=== PATIENT | female | born 1980 | race Caucasian/White ===

== ENCOUNTER 2017-11-28 18:39 | Emergency (ER) | payer OTHER, MEDICAID, SELFPAY ==
[2017-11-28 18:40] VITALS: BMI 25.7
--- NOTE | 2017-11-28 18:52 | ED_ITS ---
HPI - Abdominal Pain General Chief Complaint: Abdominal Pain Stated Complaint: RIGHT SIDE CRAMPS/HEADACHE Time Seen by Provider: 11/28/17 18:51 Source: patient Mode of arrival: ambulatory Limitations: no limitations History of Present Illness HPI narrative: 37-year-old female here for evaluation of right lower quadrant abdominal pain. Patient states that the symptoms have been going on for the past couple days. She did see provider out on 1 of the . She states that over the past 24 hr she is started to have nausea and vomiting no fevers but did have decreased appetite. No urinary symptoms. No change of bowel or bladder. She states that she has had ovarian cysts in the past and she states this feels somewhat like an ovarian cyst. Related Data Home Medications Medication Instructions Recorded Confirmed Ethinyl Estradiol/Norgestima 1 tab PO QDAY #0 tab 11/27/12 (ORTHO TRI-CYCLEN LO) Allergies Allergy/AdvReac Type Severity Reaction Status Date / Time hydrocodone Allergy Verified 11/28/17 18:40 Review of Systems Constitutional Denies fever(s) and Reports headache(s) ENT Ears, Nose, Mouth, and Throat: Reports headache(s) Cardiovascular Denies chest pain and Denies dyspnea Respiratory Denies dyspnea Gastrointestinal Gastrointestinal: Reports abdominal pain, Denies change in stool character, Reports nausea and Reports vomiting Genitourinary Denies urinary frequency, Denies difficulty voiding, Denies dysuria, Denies pelvic pain, Denies flank pain and Denies vaginal discharge Musculoskeletal Denies myalgias and Denies arthralgias Integumentary/Breasts Denies lesions and Denies rash Neurologic Reports headache(s) Hematologic/Lymphatic Denies easy bleeding and Denies easy bruising [facility] Medical History Migraines (Acute) Surgical History No pertinent past surgical history (Acute) Exam Initial Vital Signs Initial Vital Signs: Vital Signs Pulse Rate 67 11/28/17 19:21 Respiratory Rate 16 11/28/17 19:21 Blood Pressure 116/79 11/28/17 19:21 Pulse Oximetry 100 11/28/17 19:21 Const General: cooperative, healthy appearing, comfortable, well developed, well groomed and No acute distress Orientation: alert, awake and oriented x3 HENMT Head: normal to inspection and normocephalic Cardio Rate: regular rate Rhythm: regular rhythm Pulses: radial pulses present GI Inspection: non-distended Palpation: soft and No firm Skin Lesions: no lesions Rashes: no rashes Neuro General: alert, awake and oriented x3 Cognition: normal cognition Speech: speech normal Gait: normal gait Extrem General: normal to inspection and capillary refill normal Psych Appearance: grossly normal and well kempt Course Orders Ordered: ED Orders 11/28/17 19:04 US pelvic complete Stat 11/28/17 20:40 Complete Blood Count AUTO DIFF Stat Comprehensive Metabolic Panel Stat Lipase Stat Discontinued Medications Acetaminophen (Tylenol) 975 mg PO NOW ONE Stop: 11/28/17 21:13 Last Admin: 11/28/17 21:15 Dose: 975 mg Diphenhydramine HCl (Benadryl) 25 mg IV NOW ONE Stop: 11/28/17 19:03 Last Admin: 11/28/17 19:38 Dose: 25 mg Sodium Chloride (Normal Saline 0.9%) 1,000 mls @ 1,000 mls/hr IV BOLUS ONE Stop: 11/28/17 20:01 Last Infusion: 11/28/17 20:35 Dose: 0 mls/hr Admin: 11/28/17 19:38 Dose: 1,000 mls/hr Ketorolac Tromethamine (Toradol) 30 mg IV NOW ONE Stop: 11/28/17 21:13 Last Admin: 11/28/17 21:15 Dose: 30 mg Metoclopramide HCl (Reglan) 10 mg IV NOW ONE Stop: 11/28/17 19:03 Last Admin: 11/28/17 19:38 Dose: 10 mg Vital Signs - 8 hr 11/28/17 19:21 11/28/17 20:46 Pulse Rate 67 68 Respiratory Rate 16 16 Blood Pressure [Right Arm] 116/79 114/80 Pulse Oximetry 100 100 MDM - Abdominal Pain Lab Data Attestation: I reviewed the patient's lab results. Result diagrams: 11/28/17 20:40 11/28/17 20:40 Lab Results 11/28/17 11/28/17 Range/Units 20:40 20:40 WBC 6.8 (4.5-11.0) X10^3/uL RBC 3.94 L (4.0-5.2) X10^6/uL Hgb 12.7 (12.0-16.0) g/dL Hct 37.0 (36-46) % MCV 93.9 (80-100) fL MCH 32.1 (26-34) PG MCHC 34.2 (30-36) % RDW 13.4 (11.6-14.8) % Plt Count 273 (150-400) X10^3/uL Neut % (Auto) 68.2 (50-75) % Lymph % (Auto) 24.6 L (25-40) % [place] % (Auto) 6.3 (3-14) % Eos % (Auto) 0.3 L (2-4) % Baso % (Auto) 0.6 (0-2) % Neut # (Auto) 4600 (7755-5160) /uL Sodium 141 (137-145) mmol/L Potassium 4.1 (3.4-5.1) mmol/L Chloride 108 H (98-107) mmol/L Carbon Dioxide 23 (22-32) mmol/L BUN 14 (7-17) mg/dL Creatinine 0.60 (0.52-1.04) mg/dL Estimated GFR > 60.0 (>60) mL/min BUN/Creatinine Ratio 23.3 H (6-22) Glucose 75 (70-100) mg/dL Calcium 8.6 (8.4-10.2) mg/dL Total Bilirubin 0.3 (0.2-1.3) mg/dL AST 15 (14-36) IU/L ALT 22 (9-52) IU/L Alkaline Phosphatase 81 (38-126) U/L Total Protein 6.4 (6.3-8.2) g/dL Albumin 3.8 (3.5-5.0) g/dL Globulin 2.6 (1.7-4.1) g/dL Albumin/Globulin Ratio 1.5 (1.0-2.8) Lipase 52 (23-300) U/L Point of care testing: Point of Care Testing Test Results Negative Urine Dip Bedside Urine Glucose Negative Bedside Urine Bilirubin - Negative Bedside Urine Ketone ++ 40 Urine Specific [place] 1.015 Bedside Urine Occult Blood - Negative Bedside Urine pH 6.0 Bedside Urine Protein - Negative Bedside Urine Urobilinogen - Negative Bedside Urine Nitrite - Negative Bedside Urine Leukocytes - Negative Esterase Imaging Data US - abdomen: Radiologist's impression: PROCEDURE: US PELVIC COMPLETE INDICATIONS: RIGHT PELVIC PAIN TECHNIQUE: Real-time scanning was performed of the pelvic organs, with image documentation. Additional endovaginal scanning was necessary due to incomplete visualization of the adnexal and endometrial structures by transabdominal scanning. COMPARISON: None. FINDINGS: Transabdominal scanning: Limited scanning through the kidneys shows no hydronephrosis. No pathologic free abdominal or pelvic fluid. Endovaginal scanning: Uterus: Uterus is normal in size at 4.5 x 9.1 x 5.8 cm. The endometrium measures 10.3 mm in combined thickness. Ovaries: The right ovary measures 2.8 x 2.8 x 2.7 cm. There is a 2.3 x 1.6 x 2.4 cm complex, avascular cyst within the right ovary. The left ovary measures 2.8 x 1.9 x 1.9 cm and has a normal echotexture. IMPRESSION: 1. Complex avascular right ovarian cyst suggesting a hemorrhagic cyst or endometrioma. 6-12 weeks sonographic followup recommended to ensure stability or resolution. Dictated by: Keyanna Forrest M.D. on 11/28/2017 at 20:21 Approved by: Keyanna Forrest M.D. on 11/28/2017 at 20:24 [facility] Narrative Medical decision making narrative: 37-year-old female with ultrasound showing right sided complex ovarian cyst. I feel that this is the source of her pain since she states that she has had ovarian cysts in the past and this feels like an ovarian cyst. Given the fact she does not have a fever and this finding I feel that a CT scan for appendicitis is not necessary today. She also has a headache. Has a history of headaches. Was given pain medication here in the emergency department which did improve her symptoms. She was given return precautions. She expressed understanding and agreement with plan. Discharge Plan Departure Patient Disposition: Home Clinical Impression: Headache, Abdominal pain, Ovarian cyst Discharge Date/Time: 11/28/17 21:50 Interventions: ED Discharge Assessment Last Done: 11/28/17 21:48 Instructions: DI for Ovarian Cyst, DI for Abdominal Pain-Adult, DI for Headache Activity Restrictions/Additional Instructions: Recommend that you contact your primary doctor to discuss your options for control. I do recommend a follow-up for the right ovarian cyst that was seen today in the ER. Return to the emergency department for any new or worsening symptoms, fevers, worsening abdominal pain, inability to tolerate oral intake, or any other concerning symptoms Prescriptions: No Action Ethinyl Estradiol/Norgestima (ORTHO TRI-CYCLEN LO) 1 tab PO QDAY Qty: 0 RF: 0
--- NOTE | 2017-11-28 19:04 | DI.US.S_ITS ---
PROCEDURE: US PELVIC COMPLETE INDICATIONS: RIGHT PELVIC PAIN TECHNIQUE: Real-time scanning was performed of the pelvic organs, with image documentation. Additional endovaginal scanning was necessary due to incomplete visualization of the adnexal and endometrial structures by transabdominal scanning. COMPARISON: None. FINDINGS: Transabdominal scanning: Limited scanning through the kidneys shows no hydronephrosis. No pathologic free abdominal or pelvic fluid. Endovaginal scanning: Uterus: Uterus is normal in size at 4.5 x 9.1 x 5.8 cm. The endometrium measures 10.3 mm in combined thickness. Ovaries: The right ovary measures 2.8 x 2.8 x 2.7 cm. There is a 2.3 x 1.6 x 2.4 cm complex, avascular cyst within the right ovary. The left ovary measures 2.8 x 1.9 x 1.9 cm and has a normal echotexture. IMPRESSION: 1. Complex avascular right ovarian cyst suggesting a hemorrhagic cyst or endometrioma. 6-12 weeks sonographic followup recommended to ensure stability or resolution. Dictated by: Keyanna Forrest M.D. on 11/28/2017 at 20:21 Approved by: Keyanna Forrest M.D. on 11/28/2017 at 20:24
[2017-11-28 19:21] VITALS: BP 116/79; PULSE 67; RESP 16; O2SAT 100
[2017-11-28] MEDS: SODIUM CHLORIDE 0.9% 1,000 ML 1000 ML IV (19:38)
[2017-11-28] MEDS: diphenhydrAMINE 50 MG/ML VIAL 25 MG IV (19:38)
[2017-11-28] MEDS: METOCLOPRAMIDE 10 MG/2 ML INJ IV (19:38)
[2017-11-28 20:44] LABS: Add Manual Diff / Slide Review NO; Basophils Percent Auto 0.6 % (0-2); Eosinophils Percent Auto 0.3 % (2-4); Hemoglobin 12.7 g/dL (12.0-16.0); Lymphocytes Percent Auto 24.6 % (25-40); Mean Corpuscular HGB Conc 34.2 % (30-36); Mean Corpuscular Hemoglobin 32.1 PG (26-34); Mean Corpuscular Volume 93.9 fL (80-100); Monocytes Percent Auto 6.3 % (3-14); Neutrophils Absolute Auto 4600 /uL (3000-5900); Neutrophils Percent Auto 68.2 % (50-75); Platelet Count 273 X10^3/uL (150-400); Red Blood Cell Count 3.94 X10^6/uL (4.0-5.2); Red Cell Distribution Width 13.4 % (11.6-14.8); White Blood Cell Count 6.8 X10^3/uL (4.5-11.0)
[2017-11-28 20:46] VITALS: BP 114/80; PULSE 68; RESP 16; O2SAT 100
[2017-11-28 20:55] LABS: Alanine Aminotransferase 22 IU/L (9-52); Albumin 3.8 g/dL (3.5-5.0); Albumin Globulin Ratio 1.5 (1.0-2.8); Alkaline Phosphatase 81 U/L (38-126); Aspartate Aminotransferase 15 IU/L (14-36); BUN Creatinine Ratio 23.3 (6-22); Bilirubin Total 0.3 mg/dL (0.2-1.3); Blood Urea Nitrogen 14 mg/dL (7-17); Calcium 8.6 mg/dL (8.4-10.2); Carbon Dioxide 23 mmol/L (22-32); Chloride 108 mmol/L (98-107); Estimated Glomerular Filt Rate > 60.0 mL/min (>60); Globulin 2.6 g/dL (1.7-4.1); Glucose 75 mg/dL (70-100); HEMOLYSIS < 15 (0-50); Lipase 52 U/L (23-300); Potassium 4.1 mmol/L (3.4-5.1); Sodium 141 mmol/L (137-145); Total Protein 6.4 g/dL (6.3-8.2)
[2017-11-28] MEDS: ACETAMINOPHEN 325 MG TABLET 975 MG PO (21:15)
[2017-11-28] MEDS: KETOROLAC 60 MG/2 ML VIAL 30 MG IV (21:15)
== END 2017-11-28 21:50 | disposition home or self-care (01) ==
PROVIDERS: Emergency Provider Emergency Medicine; Family Provider Physician Assistant; PCP Physician Assistant
DX: R51 Headache (principal); R10.9 Unspecified abdominal pain; N83.209 Unspecified ovarian cyst, unspecified side
CPT/HCPCS: 36415; 76830; 76856; 80053; 81003; 81025; 83690; 85025; 96361; 96374; 96375; 99283; 99284; J1200; J1885; J2765

== ENCOUNTER → 2018-04-17 15:06 | Outpatient (CLI) | payer OTHER, MEDICAID, SELFPAY ==
--- NOTE | 2018-04-17 | DI.US.S_ITS ---
PROCEDURE: US OB <= 14 WEEKS FETUS INDICATIONS: SIZE AND DATES OUTSIDE/PRIOR DATING DATA: Last menstrual period (LMP): 02/10/18. LMP-based estimated date of delivery (KAROL): 11/17/18. First dating scan (date and location): This study, 04/17/18. Estimated date of delivery (KAROL) from first dating scan: 12/13/18, plus or -7 days. TECHNIQUE: Real-time scanning was performed of the fetus and maternal pelvic organs, with image documentation. Endovaginal scanning was also performed to better visualize the fetus and maternal ovaries. COMPARISON: None. FINDINGS: Embryo: An intrauterine gestation is not seen but what appears to be an intrauterine gestational sac is present the mean sac diameter 1 cm, which correlates with a gestational age estimated at 5 weeks 5 days, plus or -7 days. Measurement variability in dating: +/- 4 weeks by LMP, +/- 7 days by mean sac diameter (use before 6 weeks gestation if crown-rump length not able to be measured), +/- 5 days by crown-rump length (up to 8 weeks 6 days gestation), +/- 7 days by crown-rump length (up to 13 weeks 6 days gestation). Maternal organs: Ovaries normal considering gestational status. Limited images through the kidneys demonstrate no hydronephrosis. IMPRESSION: Mean sac diameter visualization appears present, but an intrauterine crown-rump length is not seen nor is a heart beat. Sonographic evidence of ectopic is not present, and the likelihood of ectopic is considered very low given the visualization of a yolk sac within the gestational sac, within the uterine fundus. A viable is presumed to be present, but at an early gestational age which is not yet allowing visualization of the cardiac activity and pole. Followup OB ultrasound in approximately 10 days may be warranted, versus clinical followup. anatomic survey at approximately 21 weeks gestation is recommended. A current estimated gestational age is 5 weeks 5 days and the delivery date would be projected from the study to be centered on 12/13/18, plus or -7 days. Dictated by: Ramy Cardenas M.D. on 04/17/2018 at 16:55 Approved by: Ramy Cardenas M.D. on 04/17/2018 at 16:58
== END ==
PROVIDERS: Family Provider Physician Assistant; PCP Physician Assistant; Visit Provider Family Medicine
DX: Z34.91 Encounter for supervision of normal pregnancy, unspecified, first trimester (principal); Z3A.01 Less than 8 weeks gestation of pregnancy
CPT/HCPCS: 76801

== ENCOUNTER → 2018-05-20 17:12 | Outpatient (CLI) | payer OTHER, MEDICAID, SELFPAY ==
[2018-05-20 17:55] LABS: Add Manual Diff / Slide Review NO; Basophils Absolute Auto 0 /uL (0-100); Basophils Percent Auto 0.3 % (0-2); Eosinophils Absolute Auto 100 /uL (0-450); Eosinophils Percent Auto 0.7 % (2-4); Hematocrit 38.4 % (36-46); Hemoglobin 13.1 g/dL (12.0-16.0); Lymphocytes Absolute Auto 2500 /uL (1100-4500); Lymphocytes Percent Auto 28.6 % (25-40); Mean Corpuscular HGB Conc 34.2 % (30-36); Mean Corpuscular Hemoglobin 32.1 PG (26-34); Mean Corpuscular Volume 93.8 fL (80-100); Monocytes Absolute Auto 600 /uL (0-900); Monocytes Percent Auto 6.7 % (3-14); Neutrophils Absolute Auto 5500 /uL (1500-7000); Neutrophils Percent Auto 63.7 % (50-75); Platelet Count 312 X10^3/uL (150-400); Red Blood Cell Count 4.09 X10^6/uL (4.0-5.2); Red Cell Distribution Width 12.8 % (11.6-14.8); White Blood Cell Count 8.7 X10^3/uL (4.5-11.0)
[2018-05-20 18:40] LABS: Hepatitis B Surface Antigen NEGATIVE s/c (NEGATIVE); Rubella Antibody IgG 20.6 IU/mL (>15)
[2018-05-20 18:56] LABS: HIV 1 and 2 Antibody NEGATIVE (NEGATIVE); Hep C Virus Ab w/Reflex Quant NEGATIVE s/c (NEGATIVE)
[2018-05-20 19:13] LABS: Appearance Urine UA CLEAR; Bilirubin Urine UA NEGATIVE (NEGATIVE); Color Urine UA YELLOW; Glucose Urine UA NEGATIVE (Negative); Ketones Urine UA NEGATIVE (NEGATIVE); Leukocyte Esterase Urine UA NEGATIVE (NEGATIVE); Nitrite Urine UA NEGATIVE (Negative); Occult Blood Urine UA NEGATIVE (Negative); Protein Urine UA NEGATIVE (Negative); Specific Gravity Urine UA 1.015 (1.000-1.035); Urobilinogen Urine UA 0.2 E.U./dL (0.2); pH Urine UA 7.5 (4.5-8.0)
[2018-05-21 01:05] LABS: Urine Chlamydia NOT DETECTED
[2018-05-21 01:06] LABS: Urine N gonorrhoeae NOT DETECTED
[2018-05-22 12:48] LABS: RPR Screen Nonreactive (Nonreactive)
== END ==
PROVIDERS: PCP Physician Assistant; Visit Provider Specialist
DX: Z34.81 Encounter for supervision of other normal pregnancy, first trimester (principal); Z3A.10 10 weeks gestation of pregnancy
CPT/HCPCS: 36415; 80055; 81003; 86703; 86787; 86803; 86850; 86900; 86901; 87077; 87086; 87491; 87591

== ENCOUNTER → 2018-06-22 11:08 | Outpatient (CLI) | payer OTHER, MEDICAID, SELFPAY ==
[2018-06-29 13:28] LABS: AFP, Serum 31.5 ng/mL; Calc Gestational Age 15.1; Cigarette Smoker N; Donated Egg NOT GIVEN; Donor Egg Age NOT GIVEN; Estriol, Free 0.65 ng/mL; Inhibin A, Dimeric 269 pg/mL; Maternal Ethnicity CAUCASIAN; Maternal Weight 162 lbs; Number of Fetuses NOT GIVEN; Previous Pregnancy Down Syndro NOT GIVEN; hCG, MoM 1.35
== END ==
PROVIDERS: PCP Physician Assistant; Visit Provider Specialist
DX: Z34.82 Encounter for supervision of other normal pregnancy, second trimester (principal); Z3A.15 15 weeks gestation of pregnancy
CPT/HCPCS: 36415; 82105; 82677; 84702; 86336

== ENCOUNTER → 2018-08-24 10:37 | Outpatient (CLI) | payer OTHER, MEDICAID, SELFPAY ==
--- NOTE | 2018-08-24 10:39 | DI.US.S_ITS ---
PROCEDURE: US OB >= 14 WEEKS FETUS INDICATIONS: ANATOMY SURVEY OUTSIDE/PRIOR DATING DATA: Last menstrual period (LMP): 02/10/18. LMP-based estimated date of delivery (KAROL): 11/17/18. First dating scan (date and location): 04/17/18. Estimated date of delivery (KAROL) from first dating scan: 12/13/18. TECHNIQUE: Real-time scanning was performed of the fetus, with image documentation and biometric measurements. Endovaginal scanning: Not needed for this study COMPARISON: [facility], , OB >= 14 WEEKS FETUS, 07/16/2018, 12:00. FINDINGS: General: A single living intrauterine gestation is present. Presentation: Vertex. Placenta: Placental position is anterior, without previa. Amniotic fluid index: 12.5 cm, normal range is 5-24 cm. heart rate: 145 beats per minute. Maternal cervical canal: 3.5 cm long. Normal lower limit is 2.5 cm. biometrics: Biparietal diameter: 5.8 cm, 23 weeks 4 days Head circumference: 22.1 cm, 24 weeks 1 day Abdominal circumference: 19.8 cm, 24 weeks 3 days Femur length: 4.2 cm, 23 weeks 4 days Estimated gestational age from initial scan: 24 weeks 1 day Composite gestational age from present scan: 23 weeks 6 days Estimated weight and percentile: 656 g, 37th percentile Measurement variability for biometric dating: +/- 7 days from 14 weeks to 15 weeks 6 days gestation, +/- 10 days from 16 weeks to 21 weeks 6 days gestation, +/- 2 weeks from 22 weeks to 27 weeks 6 days gestation, +/- 3 weeks for 28 weeks gestation or later. weight reference: 4500 g or EFW >90/95% is considered macrosomia or large for gestational age. EFW <10% is small for gestational age. EFW 5% or less is considered intra-uterine growth restriction. Anatomic survey: Neuro: Ventricles are non-dilated at less than 10 mm. Cisterna magna is normal at 3-11 mm. Cerebellum is normal in size and morphology. Nuchal skin fold: Normal at less than 6 mm between 14-21 weeks gestational age. Face: Nose and lips, facial profile are normal. Spine: No evidence for spina bifida. Heart: 4-chambered heart is present, with normal ventricular outflow tracts. Diaphragm: Diaphragm is intact. Stomach: Left-sided stomach is present. Kidneys: No hydronephrosis. Normal is less than 5 mm in 2nd trimester, less than 7 mm in 3rd trimester. Cord: 3-vessel cord has orthotopic insertion. Bladder: Normal in size. Extremities: All 4 extremities identified. IMPRESSION: Single living intrauterine gestation with appropriate interval growth and normal survey of anatomy. The delivery date is projected centered on 12/13/18, plus or -5 days, based on the first OB ultrasound. Dictated by: Ramy Cardenas M.D. on 08/24/2018 at 16:20 Approved by: Ramy Cardenas M.D. on 08/24/2018 at 16:22
[2018-08-24 13:59] LABS: Hematocrit 34.8 % (36-46); Hemoglobin 12.2 g/dL (12.0-16.0)
[2018-08-24 14:20] LABS: GTT (PREG) 1 Hour PP 50gm Dose 87 mg/dL (76-139)
== END ==
PROVIDERS: Family Provider Specialist; PCP Physician Assistant; Visit Provider Specialist
DX: Z34.82 Encounter for supervision of other normal pregnancy, second trimester (principal); Z3A.23 23 weeks gestation of pregnancy
CPT/HCPCS: 36415; 76811; 82950; 85014; 85018

== ENCOUNTER → 2018-11-19 13:55 | Outpatient (CLI) | payer OTHER, MEDICAID, SELFPAY ==
[2018-11-20 10:11] LABS: Strep Grp B PCR POS for Grp B Strep
== END ==
PROVIDERS: Family Provider Specialist; PCP Physician Assistant; Visit Provider Specialist
DX: Z34.83 Encounter for supervision of other normal pregnancy, third trimester (principal)
CPT/HCPCS: 87653

== ENCOUNTER 2018-11-30 09:23 | Inpatient (IN) | payer OTHER, MEDICAID, SELFPAY ==
--- NOTE | 2018-11-30 10:39 | PM.PREOP ---
Pre-operative Note Interval Note History & Physical reviewed/Exam performed by Physician: Yes Changes to H&P: No H&P completed within 30 days and has changed as indicated here:: Patient declined tubal ligation
[2018-11-30] MEDS: CEFAZOLIN 2 GM/100 ML FROZ.PIGGY IV (10:50)
[2018-11-30 10:55] LABS: Add Manual Diff / Slide Review NO; Basophils Absolute Auto 0 /uL (0-100); Basophils Percent Auto 0.3 % (0-2); Eosinophils Absolute Auto 100 /uL (0-450); Eosinophils Percent Auto 0.7 % (2-4); Hematocrit 37.4 % (36-46); Hemoglobin 13.1 g/dL (12.0-16.0); Lymphocytes Absolute Auto 1900 /uL (1100-4500); Lymphocytes Percent Auto 19.9 % (25-40); Mean Corpuscular HGB Conc 35.1 % (30-36); Mean Corpuscular Hemoglobin 32.5 PG (26-34); Mean Corpuscular Volume 92.5 fL (80-100); Monocytes Absolute Auto 600 /uL (0-900); Monocytes Percent Auto 5.9 % (3-14); Neutrophils Absolute Auto 6900 /uL (1500-7000); Neutrophils Percent Auto 73.2 % (50-75); Platelet Count 259 X10^3/uL (150-400); Red Blood Cell Count 4.04 X10^6/uL (4.0-5.2); Red Cell Distribution Width 13.3 % (11.6-14.8); White Blood Cell Count 9.5 X10^3/uL (4.5-11.0)
--- NOTE | 2018-11-30 11:17 | SUR.OPER ---
Supine on Padded OR bed, head on pillow, safety belt at thigh, arms secured on padded arm boards at <90 degrees abduction. Bump under right buttock. Legs uncrossed with pillow under knees, gel pad to heels, tape over blanket to lower legs.
--- NOTE | 2018-11-30 11:22 | SUR.OPER ---
preoperative LNN=[id number], live female at 1121.
[2018-11-30] MEDS: LACTATED RINGERS 1,000 ML 100 ML IV ×2 (11:28→13:48)
[2018-11-30 11:57] VITALS: BP 105/65; PULSE 75; RESP 16; TEMP 36.1; O2SAT 99
[2018-11-30 12:02] VITALS: BP 102/71; PULSE 78; RESP 14; O2SAT 100
--- NOTE | 2018-11-30 12:02 | SUR.OPER ---
see L&D note for apgars
[2018-11-30 12:07] VITALS: BP 107/73; PULSE 82; RESP 20; O2SAT 97
--- NOTE | 2018-11-30 12:08 | P.OP_ITS ---
Operative Date/Time/Diagnoses Date of procedure: 11/30/18 Time of procedure: 12:08 Pre-op diagnosis: Prior section x2 and breech presentation Post-op diagnosis: same Procedure & Clinicians Procedure: Repeat low-transverse section Same procedure as scheduled: Yes Surgeon: Mya Keane Turn Down Worker: James Bourgeois Click Yes if Unassisted: No Anesthesia Type: Spinal Operative Notes Findings: Normal tubes ovaries and uterus, viable female infant in breech presentation, clear amniotic fluid, Apgars were 6 and 7. Closure Type: primary Specimen(s): none sent Applied: catheter Estimated Blood Loss (mL): 350 Blood products transfused: none Procedure in detail: The patient was brought to the operating room where she underwent a spinal for anesthesia. She was placed in a supine position with a left lateral tilt. A Campos catheter was placed. Pulsatile stockings were placed and functional throughout the case. 2 g of Ancef were given IV prior to the incision. Warming was in place. The patient was prepped and draped in usual sterile fashion. A low transverse incision was made through the prior scar with a scalpel and the incision was carried down to the fascial layer which was incised transversely with scissors. The midline attachments are superiorly and inferiorly. Some bleeding was controlled Bovie. The rectus muscles were in the midline and the peritoneal incision was made with no damage to internal structures. The peritoneum was incised and superiorly and inferiorly. Bladder blade was placed and a bladder flap was developed and the bladder held away from the lower uterine segment. An incision was made in the uterus with the scalpel and the incision was extended with stretching. The breech was elevated out of the pelvis. With fundal pressure the infant was delivered to the shoulders and rotated to deliver each arm. With a finger in the mouth the head was delivered. The baby was delivered. The was bulb suctioned for clear fluid and handed off to the warmer. Cord blood was collected. The placenta delivered spontaneously with traction. The uterus was cleaned with clean laps. The uterine incision was closed in 2 layers of 0 chromic suture the first a running locking layer the second an imbricating layer. The bladder peritoneum was repaired with 2-0 Polysorb suture. The gutters were cleaned of any remaining fluids and ovaries and tubes were observed to be normal. Adequate hemostasis was noted. The perineum was closed with 2-0 Polysorb suture. The fascia layer was closed with 0 Polysorb suture with 2 stitches. The incision was irrigated and adequate hemostasis noted. The incision was closed with interrupted 3-0 Polysorb sutures and then a subcuticular stitch of 4-0 Polysorb suture. Steri-Strips were placed. The uterus was massaged to remove any clots. The patient went to recovery room in good condition. Counts of instruments and sponges were correct. Complications: none Post-operative Condition: stable Disposition: other ( Center) Plan for aftercare: Routine post section
[2018-11-30 12:12] VITALS: BP 104/73; PULSE 75; RESP 15; TEMP 36.1; O2SAT 98
--- NOTE | 2018-11-30 12:24 | SUR.PHASEI ---
Post op Phase I PACU note: Patient arrived to PACU at 1157 via inpatient bed. AA/O x 3 on arrival. Spinal level at T-4. Respirations regular and unlabored. VSS, O2 sat WNL on RA. FF @ U. Fozia pad with small amount of lochia rubra no clots. Denied any pain or discomfort. IV site patent. Handoff report received from Trini Abraham RN and Dr. Owen. VSS post arrival. Denies nausea. Stable for transfer to [facility]. Mohinder Portillo RN
[2018-11-30 12:27] VITALS: BP 106/69; PULSE 74; RESP 15; TEMP 36.1; O2SAT 98
[2018-11-30] MEDS: KETOROLAC 30 MG/ML VIAL IV ×2 (13:33→19:51)
[2018-11-30 13:45] LABS: Urine Amphetamines Negative (Negative); Urine Barbiturates Negative (Negative); Urine Benzodiazepines Negative (Negative); Urine Cocaine Negative (Negative); Urine MDMA Negative (Negative); Urine Methadone Negative (Negative); Urine Methamphetamines Negative (Negative); Urine Morphine/Opi cutoff 2000 Negative (Negative); Urine Oxycodone Negative (Negative); Urine Phencyclidine Negative (Negative); Urine Tetrahydrocannabinol Positive (Negative); Urine Tricyclic Antidepressant Negative (Negative)
[2018-11-30] MEDS: OXYCODONE IR 10 MG TABLET PO ×2 (18:09→22:06)
[2018-11-30 19:07] VITALS: BP 125/87
[2018-12-01] MEDS: KETOROLAC 30 MG/ML VIAL IV ×2 (02:01→07:49)
[2018-12-01] MEDS: OXYCODONE IR 10 MG TABLET PO ×3 (02:02→09:50)
[2018-12-01 05:51] LABS: Hematocrit 34.6 % (36-46); Hemoglobin 12.2 g/dL (12.0-16.0)
[2018-12-01] MEDS: DOCUSATE 250 MG CAPSULE PO (07:49)
--- NOTE | 2018-12-01 09:17 | P.DS_ITS ---
Discharge Providers Provider Date of admission: 11/30/18 09:23 Discharge Date: 12/01/18 Primary care physician: Josephine Gallegos PA-C Consults: 11/30/18 12:47 Consult to Robotics Application Engineer Routine Comment: Discharge provider: Mya Keane MD Summary Hospital Course Date Patient Seen: 12/01/18 Time Patient Seen: 09:17 Procedures: Repeat low-transverse section Hospital Course: Patient underwent a repeat low-transverse section with a breech baby. Female infant had to be transported due to pneumothorax. Patient feels she is ready to be discharged so she can go be with her baby. She is urinating post removal of her Campos catheter. She is ambulatory. She did pass a little gas. Peripartum Data Infant Delivery Method: Section (Repeat and breech presentation) Procedures: Repeat low-transverse section complications: none 1: Disposition of : NICU (General acute hospital for pneumothorax) Time Spent with Patient Time attestation: Total time spent providing and/or coordinating discharge services: Objective Labs Result Diagrams: 12/01/18 05:10 Labs: Laboratory Results - last 24 hr 11/30/18 11/30/18 11/30/18 10:40 10:40 13:34 WBC 9.5 RBC 4.04 Hgb 13.1 Hct 37.4 MCV 92.5 MCH 32.5 MCHC 35.1 RDW 13.3 Plt Count 259 Neut % (Auto) 73.2 Lymph % (Auto) 19.9 L [place] % (Auto) 5.9 Eos % (Auto) 0.7 L Baso % (Auto) 0.3 Neut # (Auto) 6900 Lymph # (Auto) 1900 [place] # (Auto) 600 Eos # (Auto) 100 Baso # (Auto) 0 Urine Opiates Screen Negative Ur Oxycodone Screen Negative Urine Methadone Screen Negative Ur Barbiturates Screen Negative U Tricyclic Antidepress Negative Ur Phencyclidine Scrn Negative Ur Amphetamines Screen Negative U Methamphetamines Scrn Negative Ur MDMA Scrn (Ecstasy) Negative U Benzodiazepines Scrn Negative Urine Cocaine Screen Negative U Marijuana (THC) Screen Positive H Blood Type A Positive Antibody Screen Negative 12/01/18 05:10 WBC RBC Hgb 12.2 Hct 34.6 L MCV MCH MCHC RDW Plt Count Neut % (Auto) Lymph % (Auto) [place] % (Auto) Eos % (Auto) Baso % (Auto) Neut # (Auto) Lymph # (Auto) [place] # (Auto) Eos # (Auto) Baso # (Auto) Urine Opiates Screen Ur Oxycodone Screen Urine Methadone Screen Ur Barbiturates Screen U Tricyclic Antidepress Ur Phencyclidine Scrn Ur Amphetamines Screen U Methamphetamines Scrn Ur MDMA Scrn (Ecstasy) U Benzodiazepines Scrn Urine Cocaine Screen U Marijuana (THC) Screen Blood Type Antibody Screen Exam Vital Signs (past 8 hours): Blood pressure 132/83, pulse of 82, temperature 98.6? Oxygen Delivery Method Room Air Narrative Exam Narrative: Patient's abdomen is soft, nontender. Uterus is firm, at U, nontender. Mild lochia. Extremities without edema and nontender. Patient's blood type is O-positive, she is rubella immune. Patient did not get Tdap Discharge Plan Discharge Plan Patient Disposition: Home Discharge Med Rec/Prescriptions Prescriptions: New ibuprofen 600 mg Tablet 600 mg PO Q6HR PRN (Reason: As Needed For Fever/Mild Pain) Qty: 30 RF: 0 docusate sodium 250 mg Capsule 250 mg PO DAILY Qty: 20 RF: 0 oxycodone 5 mg tablet 10 mg PO Q4-6H PRN (Reason: pain) Qty: 30 RF: 0 Continued prenat.vits,mary,lit-stim-oprab tablet 1 tab PO DAILY RF: 0 cholecalciferol (vitamin D3) 1,000 unit capsule 1,000 unit PO DAILY RF: 0 Follow up/Referrals: Mya Keane MD [Family Provider] - 1 Week (Aquacel removal, also make 4 week postop appointment with Dr. Keane) Josephine Gallegos PA-C [Primary Care Provider] - Provider Discharge Instructions Diet: Regular Activity: Nothing in vagina for 4 weeks, do not lift over 20 lb Skin/Wound/Dressing Care Report to your healthcare provider any signs of infection, such as:: chills, fever and increased pain Dressing: Leave dressing in place for 1 week Discharge Data Primary Care Provider: Josephine Gallegos
[2018-12-01] MEDS: TET,DIPH,PERTUSS(ACELL),VAC/PF 0.5 ML SYRINGE IM (09:50)
== END 2018-12-01 11:35 | disposition home or self-care (01) | DRG 540 ==
PROVIDERS: Admitting Provider Specialist; Family Provider Specialist; PCP Physician Assistant; Visit Provider Specialist
PROC: 10D00Z1 Extraction of Products of Conception, Low, Open Approach (ICD-10-PCS; CPT 59514; principal; 2018-11-30 11:15)
DX: O64.1XX0 Obstructed labor due to breech presentation, not applicable or unspecified (principal); O99.824 Streptococcus B carrier state complicating childbirth; Z3A.39 39 weeks gestation of pregnancy; Z37.0 Single live birth
CPT/HCPCS: 36415; 59050; 59514; 80305; 85014; 85018; 85025; 86850; 86900; 86901; 90715; J0690; J1885; J2274; J2590